=== PATIENT | female | born 1965 | race Caucasian/White ===

== ENCOUNTER 2018-12-03 17:31 | Emergency (ER) | payer SELFPAY ==
[~2018-12-03] VITALS: Ht 160 cm; Wt 71.7 kg
[~2018-12-03 17:31] MED LIST: AMBIEN10 M1 PO; BACTRIM DS 8001 TA1 PO; DAYPRO600 M1 PO; EFFEXOR XR150 MG PO; FLEXERIL5 MG PO; FLOMAX0.4 MG PO; HYDROCODONE BIT1 T11 PO; LAMICTAL200 MG PO; PERCOCET 325 MG1 TA2 PO; PREDNISONE20 MG PO; ROBITUSSIN AC 110 ML PO; SEPTDS PO; VALIUM10 MG PO; VICODIN ES 7501 TAB PO; XANAX1 MG PO; ZITHROMAX Z PA250 MG PO
== END 2018-12-03 19:54 | disposition home or self-care (01) ==
LOC: ED 17:31
DX: S20.212A Contusion of left front wall of thorax, initial encounter (principal); J06.9 Acute upper respiratory infection, unspecified; Z79.2 Long term (current) use of antibiotics; Z79.899 Other long term (current) drug therapy; X50.9XXA Other and unspecified overexertion or strenuous movements or postures, initial encounter; Y93.89 Activity, other specified; Y92.89 Other specified places as the place of occurrence of the external cause; Y99.8 Other external cause status

== ENCOUNTER 2020-12-05 16:52 | Emergency (ER) | payer OTHER ==
[~2020-12-05] VITALS: Ht 160 cm; Wt 64.0 kg
[2020-12-05] MEDS ORDERED: VISTARIL25 MG PO (17:06)
== END 2020-12-05 17:25 | disposition home or self-care (01) ==
LOC: ED 16:52
DX: T78.40XA Allergy, unspecified, initial encounter (principal); Z79.899 Other long term (current) drug therapy; Z98.51 Tubal ligation status; Z98.890 Other specified postprocedural states; X58.XXXA Exposure to other specified factors, initial encounter

== ENCOUNTER → 2022-08-17 | Outpatient (CLI) | payer OTHER, MEDICAID ==
[~2022-08-17] MED LIST changes: +ALDACTONE100 MG PO; +LANTUS SOL100 UNIT/1 SC; +LASIX40 MG PO; +LOPID600 M1 PO; +RISPERDAL3 M1 PO; +VISTARIL25 MG PO
== END | disposition home or self-care (01) ==
LOC: RAD 11:39
PROVIDERS: ATTEND Nurse Practitioner Family
DX: M85.88 Other specified disorders of bone density and structure, other site (principal); M54.9 Dorsalgia, unspecified

== ENCOUNTER → 2022-10-12 | Day surgery (SDC) | payer OTHER, MEDICAID ==
[~2022-10-12] VITALS: Ht 160 cm; Wt 64.0 kg
[2022-10-12 08:00] VITALS: BP 106/54
[2022-10-12 09:59] VITALS: BP 114/43
[2022-10-12 10:14] VITALS: BP 101/55
[2022-10-12 10:25] VITALS: BP 107/56
== END | disposition home or self-care (01) ==
LOC: SDC 10-07 11:45
PROVIDERS: ATTEND Ophthalmology
DX: E11.36 Type 2 diabetes mellitus with diabetic cataract (principal); H25.812 Combined forms of age-related cataract, left eye; F17.210 Nicotine dependence, cigarettes, uncomplicated; E03.9 Hypothyroidism, unspecified; F41.9 Anxiety disorder, unspecified; F32.A Depression, unspecified; Z79.899 Other long term (current) drug therapy

== ENCOUNTER → 2022-11-16 | Day surgery (SDC) | payer OTHER, MEDICAID ==
[~2022-11-16] VITALS: Ht 160 cm; Wt 59.9 kg
[~2022-11-16] MED LIST changes: +LOPRESSOR25 MG PO
[2022-11-16 07:20] VITALS: BP 112/60
[2022-11-16 09:19] VITALS: BP 114/43
[2022-11-16 09:35] VITALS: BP 119/36
[2022-11-16 09:49] VITALS: BP 116/45
== END ==
LOC: SDC 11-11 14:45
PROVIDERS: ATTEND Ophthalmology
DX: E11.36 Type 2 diabetes mellitus with diabetic cataract (principal); H25.11 Age-related nuclear cataract, right eye; F17.210 Nicotine dependence, cigarettes, uncomplicated

== ENCOUNTER → 2024-03-07 | Outpatient (CLI) | payer OTHER, MEDICAID | END | disposition home or self-care (01) | LOC: LAB 13:06 | PROVIDERS: ATTEND Nurse Practitioner | DX: F41.0 Panic disorder [episodic paroxysmal anxiety] (principal) ==

== ENCOUNTER 2024-06-14 19:35 | Emergency (ER) | payer OTHER, MEDICAID ==
[~2024-06-14] VITALS: Ht 160 cm; Wt 57.2 kg
[~2024-06-14 19:35] MED LIST changes: +ALBUTEROL SULFATE HF; +ATORVASTATIN CA40 M1 PO; +BUDESONIDE-FO10.2 G1 INH; +Carafate1 GM PO; +GABAPENTIN100 M2 PO; +GEMFIBROZIL600 MG PO; +GLIPIZIDE10 M1 PO; +JANUVIA100 MG PO; +LEVOTHYROXINE112 MCG PO; +LOVASTATIN20 MG PO; +PANTOPRAZOLE SO40 MG PO; +PREDNISONE10 MG PO; +TEFLARO400 MG IV; +TIZANIDINE2 MG PO; +VENLAFAXINE HY150 M2 PO; +VENLAFAXINE HYD75 M3 PO; +VITAMIN D250 MC1 PO; +ZALEPLON10 MG PO
[2024-06-14 20:15] LABS: BASO % 0.3 % (0.0-1.0); EOS % 0.2 % (1.0-4.0); HEMATOCRIT 30.6 % (37.0-47.0); MEAN CELL VOLUME 82.7 fl (81.0-99.0); MEAN CORPUSCULAR HGB 24.9 pg (27.0-31.0); MEAN CORPUSCULAR HGB CONC 30.1 g/dl (33.0-37.0); MEAN PLATELET VOLUME 11.8 fl (9.6-12.3); MONO # 0.4 10*3/uL (0.1-1.0); MONO % 4.1 % (3.0-9.0); NEUT % 85.7 % (47.0-73.0); PLATELET COUNT AUTOMATED 95 10*3/uL (130-400); RED CELL DISTRI WIDTH 17.3 % (0-14.5); WHITE BLOOD COUNT 9.3 10*3/uL (4.8-10.8)
[2024-06-14] MEDS ORDERED: TRANEXAMIC ACID 1,000 MG/10 ML VIAL T ONE (22:05)
== END 2024-06-14 22:32 | disposition home or self-care (01) ==
LOC: ED 19:35
PROVIDERS: Internal Medicine
DX: T82.837A Hemorrhage due to cardiac prosthetic devices, implants and grafts, initial encounter (principal); F17.200 Nicotine dependence, unspecified, uncomplicated; Z90.710 Acquired absence of both cervix and uterus; Z90.49 Acquired absence of other specified parts of digestive tract; Z98.890 Other specified postprocedural states; Y71.3 Surgical instruments, materials and cardiovascular devices (including sutures) associated with adverse incidents; Y92.89 Other specified places as the place of occurrence of the external cause